=== PATIENT | female | born 1970 | race Caucasian/White ===

== ENCOUNTER → 2018-09-25 | Outpatient (CLI) | payer OTHER | END | disposition home or self-care (01) | LOC: LAB SHORT 13:56 → PLD 13:56 | DX: D22.61 Melanocytic nevi of right upper limb, including shoulder (principal) | CPT/HCPCS: 88305 ==

== ENCOUNTER 2019-06-01 09:27 | Day surgery (SDC) | payer OTHER ==
[~2019-06-01] VITALS: Ht 157.5 cm; Wt 63.0 kg
[~2019-06-01 09:27] MED LIST: CALCIUM CITRAT1 EAC1 PO; FERATE240 MG PO; VITAMIN B122500 MCG PO; Vitamin C100 M1 PO; Vitamin D2000 UNIT PO; [UNRECOGNIZED DRUG - OTHER] PO
--- NOTE | 2019-06-01 10:27 | NUR ---
Ambulatory in Day Surgery. History, Chart, Medications and Allergies reviewed before start of procedure. Lungs clear T/O to Auscultation. Patient confirms NPO status and agrees with scheduled surgery. Pre-Op teaching done. Pt verbalizes understanding. Patient reports completing Chlorhexadine shower X2 prior to admission to hospital.
--- NOTE | 2019-06-01 13:56 | NUR ---
ASSUMED CARE AT 1345 GAVE REPORT TO SURG NURSE.
[2019-06-01 15:07] LABS: BASOPHILS ABSOLUTE AUTO 0.05 K/mm3 (0.00-0.23); BASOPHILS PERCENT AUTO 0 % (0-2); EOSINOPHILS PERCENT AUTO 0 % (0-6); Hematocrit 34.2 % (33.0-51.0); Hemoglobin 10.7 g/dL (11.5-16.0); IMMATURE GRAN ABSOLUTE AUTO 0.07 K/mm3 (0.00-0.10); IMMATURE GRAN PERCENT AUTO 1 % (0-1); LYMPHOCYTES ABSOLUTE AUTO 0.71 K/mm3 (0.84-5.20); LYMPHOCYTES PERCENT AUTO 5 % (21-46); MONOCYTES ABSOLUTE AUTO 0.12 K/mm3 (0.16-1.47); MONOCYTES PERCENT AUTO 1 % (4-13); Mean Corpuscular HGB 30.7 pg (26.0-34.0); Mean Corpuscular HGB Conc 31.3 g/dL (31.5-36.5); Mean Platelet Volume 9.8 fL (9.1-12.4); NEUTROPHILS ABSOLUTE AUTO 12.38 K/mm3 (1.96-9.15); NEUTROPHILS PERCENT AUTO 93 % (41-73); Platelet Count 270 K/mm3 (150-400); RDW Coefficient Variation 13.2 % (11.7-14.2); RDW Standard Deviation 47.8 fL (35.1-46.3); Red Blood Cell Count 3.48 M/mm3 (3.80-5.20); White Blood Cell Count 13.33 K/mm3 (4.00-11.30)
[2019-06-01 15:10] LABS: Mean Corpuscular Volume 98 fL (80-100)
[2019-06-02 00:19] LABS: Hematocrit 30.6 % (33.0-51.0); Hemoglobin 9.9 g/dL (11.5-16.0); Mean Corpuscular HGB 30.9 pg (26.0-34.0); Mean Corpuscular HGB Conc 32.4 g/dL (31.5-36.5); Mean Corpuscular Volume 96 fL (80-100); Mean Platelet Volume 9.8 fL (9.1-12.4); Platelet Count 237 K/mm3 (150-400); RDW Coefficient Variation 13.2 % (11.7-14.2); RDW Standard Deviation 46.2 fL (35.1-46.3); White Blood Cell Count 15.16 K/mm3 (4.00-11.30)
--- NOTE | 2019-06-02 07:21 | NUR ---
SUMMARY PT C/O FEELING FULL BLADDER TONIGHT @ 2315. CABRERA PATENT OF CLR YELLOW, BUT STAT LOC LOCATION WAS CREATING TENSION. I REMOVED STAT LOCK.BLADDER SCAN CHECKED FOR [address] CRUZ AND ADVISED OF PT STATUS C/O,VS,APPEARANCE OF URINE.DISCUSSED PT REQUEST TO D/C CABRERA EARLY. WISHED PT TO LEAVE IN UNTIL 0600 WHEN PACKING COULD ALSO BE DCD TO AVOID POTENTIAL NEED FOR STRAIGHT CATHING.ALSO ORDERED CBC WHICH RETURNED SATISF RESULTS. WHEN I DARRION PT AFTER REMOVING STAT LOCK, SHE HAD INCREASED CABRERA RETURN AND FELT BETTER. VSS.CABRERA AND PACKING REMOVED THIS AM PER ORDERS. FOLLOW UP BLADDER SCAN AFTER CABRERA OUT WAS MINIMAL.PT REFUSED PAIN MEDS THIS SHIFT. TOLERATING SMALL AMNTS PO. IV FLUIDS SL THIS AM. DR CRUZ DCD AM CBC AFTER REVIEWING .
--- NOTE | 2019-06-02 08:17 | NUR ---
BS/COLACE BS SHOWED 305. PT IMMEDIATELY WENT TO RESTROOM AND VOIDED 200ML. WILL CONTINUE TO MONITOR. PT REPORTS FEELS NEED TO HAVE BM. PASSING FLATUS. DECLINED COLACE, STATING HAS DIFFICULTY SWALLOWING PILLS. PROVIDED PRUNE JUICE COCKTAIL WHICH PT DRANK. ADVISED PT TO CALL AFTER VOIDS SO MAY PERFORM BS PER ORDERS.
--- NOTE | 2019-06-02 09:31 | NUR ---
VOIDING/BS DISCUSSED VOIDS AND BS W/DR CRUZ. OKAY TO DC. INSTRUCT TO VOID FREQUENTLY.
--- NOTE | 2019-06-02 10:11 | NUR ---
DISCHARGED DC'D IV, CATHETER INTACT. REVIEWED DC PAPERWORK; PT VERBALIZED UNDERSTANDING. PT DOES NOT WISH TO GO HOME W/PAIN MEDS; NO PRESCRIPTIONS WRITTEN. PT DRESSED, AWAITING RIDE.
--- NOTE | 2019-06-02 10:30 | NUR ---
PT LEFT UNIT IN WC ACCOMPANIED BY RIDE W/POSSESSIONS AND DC PAPERWORK IN HAND.
== END 2019-06-02 10:28 | disposition home or self-care (01) ==
LOC: ORSCMMR 09:27 → ORD 11:00 → SURS 13:52 → ORSCMMR 06-02 10:28
PROVIDERS: Obstetrics & Gynecology Gynecology
PROC: 0JQC0ZZ Repair Pelvic Region Subcutaneous Tissue and Fascia, Open Approach (ICD-10-PCS; principal; 2019-06-01 11:00)
PROC: 0UT97ZZ Resection of Uterus, Via Natural or Artificial Opening (ICD-10-PCS; principal; 2019-06-01 11:00)
DX: N81.10 Cystocele, unspecified (principal); N81.6 Rectocele; N84.0 Polyp of corpus uteri; D25.9 Leiomyoma of uterus, unspecified; Z87.891 Personal history of nicotine dependence
CPT/HCPCS: 36415; 84703; 85025; 85027; 88307; J0690; J1100; J2250; J2370; J2405; J2704; J3010; J7120